=== PATIENT | female | born 1975 | race Caucasian/White ===

== ENCOUNTER 2022-06-21 17:53 | Emergency (ER) | payer OTHER, SELFPAY ==
[2022-06-21 17:53] VITALS: BP 125/81; PULSE 92; RESP 20; TEMP 36.6; O2SAT 98; BMI 40.7
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
--- NOTE | 2022-06-21 18:59 | PC.NURSE ---
sling applied. pt waiting ride back to [facility]
[2022-06-21 19:57] VITALS: BP 124/81; PULSE 89; RESP 20; TEMP 36.6; O2SAT 98
== END 2022-06-21 19:58 | disposition home or self-care (01) ==
PROVIDERS: Emergency Provider Emergency Medicine; PCP Emergency Medicine
DX: M79.602 Pain in left arm (principal); V09.9XXA Pedestrian injured in unspecified transport accident, initial encounter; Z72.0 Tobacco use
CPT/HCPCS: 73030; 96372; 99283